=== PATIENT | female | born 2000 | race Caucasian/White ===

== ENCOUNTER 2022-12-28 13:45 | Emergency (ER) | payer OTHER ==
[~2022-12-28] VITALS: Ht 149.9 cm; Wt 90.7 kg
[2022-12-28 13:59] VITALS: BP 148/98; PULSE 87; RESP 18; TEMP 98.2; O2SAT 100
[2022-12-28 14:38] LABS: BILIRUBIN,URINE NEGATIVE (NEGATIVE); LEUKOCYTE ESTERASE ,URINE 3+ (NEGATIVE); NITRATE,URINE NEGATIVE (NEGATIVE); UROBILINOGEN,URINE 0.2 E.U./dL (0.2)
[2022-12-28 14:43] LABS: APPEARANCE,URINE CLOUDY; UA COLOR YELLOW
== END 2022-12-28 15:57 | disposition home or self-care (01) ==
LOC: ER 13:45 → MERGE 13:45 → ER 15:57
DX: O23.40 Unspecified infection of urinary tract in pregnancy, unspecified trimester (principal); Z87.440 Personal history of urinary (tract) infections; Z3A.00 Weeks of gestation of pregnancy not specified
CPT/HCPCS: 81001; 81025; 87086; 99283